=== PATIENT | male | born 1975 | race Hispanic/Latino ===

== ENCOUNTER 2016-11-30 08:12 | Emergency (ER) | payer BC ==
[2016-11-30 08:13] VITALS: BMI 38.7
[2016-11-30 08:22] VITALS: BP 140/77; PULSE 70; RESP 18; TEMP 98.4; O2SAT 95
--- NOTE | 2016-11-30 08:52 | ED PDOC ---
HPI: Chest Pain Time Seen by Provider: 11/30/16 08:25 Chief Complaint (Provider): Chest pain History Per: Patient History/Exam Limitations: no limitations Onset/Duration Of Symptoms: Days (Today) Current Symptoms Are (Timing): Still Present Additional Complaint(s): Chest pain like squeezing off and on for today when he woke up. No numbness, tingles, weakness, headaches, dizziness, calf pain, cough, long distance travel. No hormone tx. No back pain. No abd pain. Past Medical History Reviewed: Nursing Documentation, Vital Signs Vital Signs: Last Vital Signs Temp 98.4 F 11/30/16 08:32 Pulse 70 11/30/16 08:36 Resp 18 11/30/16 08:32 BP 140/77 11/30/16 08:32 Pulse Ox 95 11/30/16 08:53 - Medical History PMH: No Chronic Diseases Denies: Chronic Kidney Disease - Surgical History Surgical History: No Surg Hx - Family History Family History: States: Unknown Family Hx - Social History Current smoker - smoking cessation education provided: No Alcohol: None Drugs: Denies - Home Medications Home Medications: Ambulatory Orders Medication Instructions Recorded Acetaminophen/Oxycodone Hydr 1 tab PO Q6H PRN #12 tab 09/10/13 [Percocet 10/325 mg Tab] Ibuprofen 1 tab PO TID PRN #15 tab 09/10/13 Diazepam [Valium] 2 mg PO BID PRN #10 tab 03/19/14 Famotidine [Pepcid] 40 mg PO DAILY PRN #30 tab 03/19/14 Ibuprofen [Motrin] 600 mg PO TID PRN #30 tab 03/19/14 Amoxicillin/Clavulanate [Augmentin 1 tab PO BID #20 tab 04/12/14 875 MG-125 MG] Naproxen [Naprosyn] 500 mg PO Q12 PRN #30 tab 05/05/14 Acetaminophen/Hydrocodone Bi 1 tab PO QID PRN #12 tab 10/05/14 [Vicodin 300 mg-5 mg] Ondansetron [Zofran Odt] 4 mg PO TID PRN #15 odt 10/05/14 Tamsulosin HCl [Flomax] 0.4 mg PO DAILY #14 cap 10/05/14 Promethazine DM [Phenergan DM 10 ml PO Q8 PRN #1 cup 11/28/15 Syrup] Albuterol Sulfate [Proair Hfa] 0.09 mg IH Q6H PRN #2 inh 04/14/16 Azithromycin [Zithromax] 250 mg PO DAILY 5 Days 04/14/16 Benzonatate [Tessalon Perles] 100 mg PO BID PRN 5 Days 04/14/16 Ibuprofen [Motrin] 600 mg PO TID 7 Days 04/14/16 - Allergies Allergies/Adverse Reactions: Allergies Allergy/AdvReac Type Severity Reaction Status Date / Time No Known Allergies Allergy Verified 11/30/16 08:32 Review of Systems ROS Statement: Except As Marked, All Systems Reviewed And Found Negative Cardiovascular: Positive for: Chest Pain Physical Exam - Reviewed Nursing Documentation Reviewed: Yes Vital Signs Reviewed: Yes - Physical Exam Appears: Positive for: Well, Non-toxic, No Acute Distress Head Exam: Positive for: ATRAUMATIC, NORMAL INSPECTION, NORMOCEPHALIC Skin: Positive for: Normal Color, Warm, DRY Eye Exam: Positive for: EOMI, Normal appearance, PERRL ENT: Positive for: Normal ENT Inspection Neck: Positive for: Normal, Painless ROM Cardiovascular/Chest: Positive for: Regular Rate, Rhythm, Chest Non Tender. Negative for: Edema Respiratory: Positive for: CNT, Normal Breath Sounds Gastrointestinal/Abdominal: Positive for: Normal Exam, Bowel Sounds, Soft. Negative for: Tenderness Back: Positive for: Normal Inspection. Negative for: L CVA Tenderness, R CVA Tenderness Extremity: Positive for: Normal ROM. Negative for: Tenderness, Pedal Edema Neurologic/Psych: Positive for: Alert, Oriented - Laboratory Results Result Diagrams: 11/30/16 10:15 11/30/16 10:15 Interpretation Of Abn Labs: no acute - ECG ECG: Positive for: Interpreted By Me, Viewed By Me ECG Rhythm: Positive for: Normal QRS, Normal ST Segment, Sinus Rhythm O2 Sat by Pulse Oximetry: 95 Pulse Ox Interpretation: Normal - Radiology X-Ray: Read By Radiologist X-Ray Interpretation: No Acute Disease - Progress ED Course And Treament: 1101: Stable. Pain free. Does not want to stay in the hospital. 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 AAOx3. Has capacity to make decisions. Disposition - Clinical Impression Clinical Impression: Acute chest pain - Patient ED Disposition Is Patient to be Admitted: No Counseled Patient/Family Regarding: Studies Performed, Diagnosis, Need For Followup - Disposition Referrals: Obed Arceo DO [Family Provider] - 11/30/16 Disposition: Routine/Home Disposition Time: 11:10 Condition: STABLE Additional Instructions: Return right away for further evaluation and admission. You wish not to be admitted today. At the least, see your doctor for further evaluation and treatment. Instructions: Chest Pain (ED) Forms: [facility] (Hungarian)
[2016-11-30] MEDS ORDERED: Sodium Chloride 0.9% 500 ML IV STA (10:03)
[2016-11-30 10:19] LABS: BASO % 0.6 % (0.0-2.0); EOS # 0.2 K/uL (0.0-0.7); EOS % 2.3 % (0.0-4.0); HEMATOCRIT 38.8 % (35.0-51.0); LYMPH # 1.3 K/uL (1.0-4.3); LYMPH % 17.2 % (20.0-40.0); MEAN CELL VOLUME 80.9 fl (80.0-94.0); MEAN CORPUSCULAR HEMOGLOBIN 26.8 pg (27.0-31.0); MEAN CORPUSCULAR HGB CONC 33.2 g/dL (33.0-37.0); MONO # 0.7 K/uL (0.0-0.8); NEUT # 5.3 K/uL (1.8-7.0); NEUT % 70.9 % (50.0-75.0); NRBC % 0.1 % (0.0-0.0); RED CELL DISTRIBUTION WIDTH 13.8 % (11.5-14.5); WHITE BLOOD COUNT 7.5 K/uL (4.8-10.8)
--- NOTE | 2016-11-30 10:25 | RAD ---
HISTORY: chest pain COMPARISON: 04/14/2016. FINDINGS: LUNGS: There may be some minimal left basilar atelectasis. PLEURA: No significant pleural effusion identified, no pneumothorax apparent. CARDIOVASCULAR: Normal. OSSEOUS STRUCTURES: Mild multilevel degenerative spondylosis of the thoracic spine VISUALIZED UPPER ABDOMEN: Normal. OTHER FINDINGS: None. IMPRESSION: Suspect minimal left basilar atelectasis
[2016-11-30 10:30] LABS: ALB/GLOB RATIO 0.9 (1.0-2.1); ALKALINE PHOSPHATASE 106 U/L (38-126); ALT/SGPT 33 U/L (21-72); AST/SGOT 25 U/L (17-59); BILIRUBIN,TOTAL 0.7 mg/dl (0.2-1.3); BLOOD UREA NITROGEN 10 mg/dl (9-20); CALCIUM 8.5 mg/dL (8.4-10.2); CARBON DIOXIDE 25 mmol/L (22-30); CHLORIDE 107 mmol/L (98-107); GFR AFRICAN-AMERICAN > 60; GLUCOSE,RANDOM 113 mg/dL (75-110); POTASSIUM 4.2 MMOL/L (3.6-5.0); SODIUM 142 mmol/l (132-148); TOTAL PROTEIN 7.5 G/DL (6.3-8.2)
--- NOTE | 2016-12-01 09:20 | CARD ---
APPROVED REPORT EKG Measurement Heart [id number] MD [id number] <Conclusion> Normal sinus rhythm Rightward axis Borderline ECG
== END 2016-11-30 11:28 | disposition home or self-care (01) ==
LOC: H.ER 08:12
DX: R07.9 Chest pain, unspecified (principal)
CPT/HCPCS: 71010; 80053; 84484; 85025; 93005; 99283; J7040

== ENCOUNTER 2016-12-28 18:11 | Emergency (ER) | payer BC ==
[2016-12-28 18:11] VITALS: BMI 38.7
--- NOTE | 2016-12-28 19:34 | ED PDOC ---
HPI: CCC, URI, Sore Throat Time Seen by Provider: 12/28/16 19:25 Chief Complaint (Nursing): Shortness Of Breath Chief Complaint (Provider): cough History Per: Patient History/Exam Limitations: no limitations Onset/Duration Of Symptoms: Days (5) Associated Symptoms: Cough. denies: Fever, Chills, Sore Throat, Sputum, Myalgias, Vomiting, Diarrhea Past Medical History Reviewed: Historical Data, Nursing Documentation, Vital Signs Vital Signs: Last Vital Signs Temp 98.2 F 12/28/16 19:36 Pulse 81 12/28/16 19:36 Resp 18 12/28/16 19:37 BP 115/63 12/28/16 19:36 Pulse Ox 99 12/28/16 19:36 - Medical History PMH: Gastritis Denies: Asthma, Chronic Kidney Disease - Family History Family History: States: Unknown Family Hx - Social History Current smoker - smoking cessation education provided: No - Home Medications Home Medications: Ambulatory Orders Medication Instructions Recorded Acetaminophen/Oxycodone Hydr 1 tab PO Q6H PRN #12 tab 09/10/13 [Percocet 10/325 mg Tab] Ibuprofen 1 tab PO TID PRN #15 tab 09/10/13 Diazepam [Valium] 2 mg PO BID PRN #10 tab 03/19/14 Famotidine [Pepcid] 40 mg PO DAILY PRN #30 tab 03/19/14 Ibuprofen [Motrin] 600 mg PO TID PRN #30 tab 03/19/14 Amoxicillin/Clavulanate [Augmentin 1 tab PO BID #20 tab 04/12/14 875 MG-125 MG] Naproxen [Naprosyn] 500 mg PO Q12 PRN #30 tab 05/05/14 Acetaminophen/Hydrocodone Bi 1 tab PO QID PRN #12 tab 10/05/14 [Vicodin 300 mg-5 mg] Ondansetron [Zofran Odt] 4 mg PO TID PRN #15 odt 10/05/14 Tamsulosin HCl [Flomax] 0.4 mg PO DAILY #14 cap 10/05/14 Promethazine DM [Phenergan DM 10 ml PO Q8 PRN #1 cup 06/25/15 Syrup] Albuterol Sulfate [Proair Hfa] 0.09 mg IH Q6H PRN #2 inh 04/14/16 Azithromycin [Zithromax] 250 mg PO DAILY 5 Days 04/14/16 Benzonatate [Tessalon Perles] 100 mg PO BID PRN 5 Days 04/14/16 Ibuprofen [Motrin] 600 mg PO TID 7 Days 04/14/16 Albuterol HFA [Ventolin HFA 90 2 puff IH Q4H PRN #1 inh 12/28/16 mcg/actuation (8 g)] Azithromycin 1 tab PO DAILY #6 tab 12/28/16 Promethazine DM [Phenergan DM 10 ml PO Q6 PRN #120 ml 12/28/16 Syrup] - Allergies Allergies/Adverse Reactions: Allergies Allergy/AdvReac Type Severity Reaction Status Date / Time No Known Allergies Allergy Verified 11/30/16 08:32 Review of Systems ROS Statement: Except As Marked, All Systems Reviewed And Found Negative (and as per HPI) Constitutional: Negative for: Fever, Chills Cardiovascular: Negative for: Chest Pain, Light Headedness Respiratory: Positive for: Cough. Negative for: Hemoptysis, SOB with Exertion, Wheezing Physical Exam - Reviewed Nursing Documentation Reviewed: Yes Vital Signs Reviewed: Yes - Physical Exam Appears: Positive for: Well, No Acute Distress Head Exam: Positive for: ATRAUMATIC, NORMOCEPHALIC Skin: Positive for: Warm, Dry Eye Exam: Positive for: EOMI, PERRL Neck: Positive for: Painless ROM, Supple Cardiovascular/Chest: Positive for: Regular Rate, Rhythm, Chest Non Tender. Negative for: Murmur Respiratory: Positive for: Normal Breath Sounds. Negative for: Accessory Muscle Use, Rales, Rhonchi, Wheezing Gastrointestinal/Abdominal: Positive for: Bowel Sounds, Soft. Negative for: Tenderness Extremity: Positive for: Normal ROM. Negative for: Pedal Edema Lymphatic: Negative for: Adenopathy Neurologic/Psych: Positive for: Alert. Negative for: Motor/Sensory Deficits Disposition - Clinical Impression Clinical Impression: Bronchitis - Disposition Referrals: Obed Arceo DO [Family Provider] - Disposition: Routine/Home Disposition Time: 19:31 Condition: STABLE Prescriptions: Albuterol HFA [Ventolin HFA 90 mcg/actuation (8 g)] 2 puff IH Q4H PRN #1 inh PRN Reason: chest tightness Azithromycin 1 tab PO DAILY #6 tab Promethazine DM [Phenergan DM Syrup] 10 ml PO Q6 PRN #120 ml PRN Reason: severe cough Instructions: Acute Bronchitis (ED) Forms: [facility] ED School/Work Excuse
[2016-12-28 19:38] VITALS: BP 115/63; PULSE 81; RESP 18; TEMP 98.2; O2SAT 99
== END 2016-12-28 19:46 | disposition home or self-care (01) ==
LOC: H.ER 18:11
DX: J20.9 Acute bronchitis, unspecified (principal)

== ENCOUNTER 2017-06-16 22:48 | Emergency (ER) | payer BC ==
[2017-06-16 22:49] VITALS: BMI 38.7
[2017-06-16 22:58] VITALS: BP 153/46; PULSE 74; RESP 18; TEMP 98.1; O2SAT 99
--- NOTE | 2017-06-16 23:37 | ED PDOC ---
HPI: Back Time Seen by Provider: 06/16/17 23:01 Chief Complaint (Nursing): Back Pain Chief Complaint (Provider): Back Pain History Per: Patient History/Exam Limitations: no limitations Onset/Duration Of Symptoms: Days (x1) Current Symptoms Are (Timing): Still Present Associated Symptoms: None Additional Complaint(s): 41 year old male presents to ED with complaints of right-sided lower back pain since yesterday and has no past medical history. Patient notes that he slipped on a wet floor yesterday, but caught himself before he fell. 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 PCP: Obed Arceo - Risk Factors AAA Risk Factors: Neg: Older Than 49 Years Of Age Past Medical History Reviewed: Historical Data, Nursing Documentation, Vital Signs Vital Signs: Last Vital Signs Temp 98.1 F 06/16/17 22:54 Pulse 74 06/16/17 22:54 Resp 18 06/16/17 22:54 BP 153/46 H 06/16/17 22:54 Pulse Ox 99 06/16/17 22:54 - Medical History PMH: No Chronic Diseases, Gastritis Denies: Asthma, Chronic Kidney Disease - Surgical History Surgical History: No Surg Hx - Family History Family History: States: Unknown Family Hx - Social History Drugs: Denies - Home Medications Home Medications: Ambulatory Orders Medication Instructions Recorded Acetaminophen/Oxycodone Hydr 1 tab PO Q6H PRN #12 tab 09/10/13 [Percocet 10/325 mg Tab] Ibuprofen 1 tab PO TID PRN #15 tab 09/10/13 Diazepam [Valium] 2 mg PO BID PRN #10 tab 03/19/14 Famotidine [Pepcid] 40 mg PO DAILY PRN #30 tab 03/19/14 Ibuprofen [Motrin] 600 mg PO TID PRN #30 tab 03/19/14 Amoxicillin/Clavulanate [Augmentin 1 tab PO BID #20 tab 04/12/14 875 MG-125 MG] Naproxen [Naprosyn] 500 mg PO Q12 PRN #30 tab 05/05/14 Acetaminophen/Hydrocodone Bi 1 tab PO QID PRN #12 tab 10/05/14 [Vicodin 300 mg-5 mg] Ondansetron [Zofran Odt] 4 mg PO TID PRN #15 odt 10/05/14 Tamsulosin HCl [Flomax] 0.4 mg PO DAILY #14 cap 10/05/14 Promethazine DM [Phenergan DM 10 ml PO Q8 PRN #1 cup 06/25/15 Syrup] Albuterol Sulfate [Proair Hfa] 0.09 mg IH Q6H PRN #2 inh 04/14/16 Azithromycin [Zithromax] 250 mg PO DAILY 5 Days tab 04/14/16 Benzonatate [Tessalon Perles] 100 mg PO BID PRN 5 Days sgl 04/14/16 Ibuprofen [Motrin] 600 mg PO TID 7 Days tab 04/14/16 Albuterol HFA [Ventolin HFA 90 2 puff IH Q4H PRN #1 inh 12/28/16 mcg/actuation (8 g)] Azithromycin 1 tab PO DAILY #6 tab 12/28/16 Promethazine DM [Phenergan DM 10 ml PO Q6 PRN #120 ml 12/28/16 Syrup] Cyclobenzaprine [Cyclobenzaprine 10 mg PO BID #15 tab 06/16/17 HCl] Ibuprofen [Motrin Tab] 600 mg PO Q6 #30 tab 06/16/17 - Allergies Allergies/Adverse Reactions: Allergies Allergy/AdvReac Type Severity Reaction Status Date / Time No Known Allergies Allergy Verified 06/16/17 22:54 Review of Systems ROS Statement: Except As Marked, All Systems Reviewed And Found Negative Musculoskeletal: Positive for: Back Pain (right-sided lower back pain) Physical Exam - Reviewed Nursing Documentation Reviewed: Yes Vital Signs Reviewed: Yes - Physical Exam Appears: Positive for: Non-toxic, No Acute Distress Head Exam: Positive for: ATRAUMATIC, NORMOCEPHALIC Skin: Positive for: Normal Color, Warm, Dry Neck: Positive for: Normal Respiratory: Positive for: Normal Breath Sounds. Negative for: Respiratory Distress Back: Positive for: Other (right lumbar paravertebral muscular tenderness). Negative for: L CVA Tenderness, R CVA Tenderness Extremity: Positive for: Normal ROM. Negative for: Deformity Neurologic/Psych: Positive for: Alert, Oriented. Negative for: Motor/Sensory Deficits - ECG O2 Sat by Pulse Oximetry: 99 (RA) Pulse Ox Interpretation: Normal Medical Decision Making Medical Decision Makin Initial impression: muscular strain Initial plan: * Flexeril 10mg PO * Ibuprofen 600mg PO * Re-evaluation 0000 Pt. feeling much better. Safe for discharge. Return precautions discussed. Scribe Attestation: Documented by Alicja Sanders acting as a scribe for Alex Barrett MD. Scribe Attestation: All medical record entries made by the Scribe were at my direction and personally dictated by me. I have reviewed the chart and agree that the record accurately reflects my personal performance of the history, physical exam, medical decision making, and the department course for this patient. I have also personally directed, reviewed, and agree with the discharge instructions and disposition. Disposition - Clinical Impression Clinical Impression: Back strain - Disposition Referrals: Obed Arceo DO [Primary Care Provider] - Disposition: Routine/Home Disposition Time: 00:00 Condition: IMPROVED Prescriptions: Cyclobenzaprine [Cyclobenzaprine HCl] 10 mg PO BID #15 tab Ibuprofen [Motrin Tab] 600 mg PO Q6 #30 tab Instructions: Muscle Strain (ED) Forms: [facility] (Beninese)
== END 2017-06-17 00:02 | disposition home or self-care (01) ==
LOC: H.ER 22:48
DX: S39.012A Strain of muscle, fascia and tendon of lower back, initial encounter (principal); X50.1XXA Overexertion from prolonged static or awkward postures, initial encounter; Y92.89 Other specified places as the place of occurrence of the external cause

== ENCOUNTER 2017-12-02 15:31 | Emergency (ER) | payer BC ==
[2017-12-02 15:31] VITALS: BMI 38.7
[2017-12-02 15:44] VITALS: BP 136/80; PULSE 80; RESP 16; TEMP 98.1; O2SAT 100
--- NOTE | 2017-12-02 16:28 | ED PDOC ---
HPI: Chest Pain Time Seen by Provider: 12/02/17 16:18 Chief Complaint (Nursing): Chest Pain Chief Complaint (Provider): Chest pain History Per: Patient History/Exam Limitations: no limitations Onset/Duration Of Symptoms: Hrs (this morning) Current Symptoms Are (Timing): Still Present Quality: Pressure Associated Symptoms: Other (dizziness) Additional Complaint(s): Jefferson Ragsdale is a 42 year old male, with no significant past medical history, who presents to the emergency department complaining of chest pressure associated with dizziness onset since this morning. Patient states the pain does not radiate. He denies any fever, chills, shortness of breath or palpitations. No further medical complaints. PMD: Obed Arceo Past Medical History Reviewed: Historical Data, Nursing Documentation, Vital Signs Vital Signs: Last Vital Signs Temp 98.1 F 12/02/17 15:42 Pulse 80 12/02/17 15:42 Resp 16 12/02/17 15:42 BP 136/80 12/02/17 15:42 Pulse Ox 100 12/02/17 17:02 - Medical History PMH: Gastritis Denies: Asthma, Chronic Kidney Disease - Surgical History Surgical History: No Surg Hx - Family History Family History: States: Unknown Family Hx - Home Medications Home Medications: Ambulatory Orders Medication Instructions Recorded Acetaminophen/Oxycodone Hydr 1 tab PO Q6H PRN #12 tab 09/10/13 [Percocet 10/325 mg Tab] Ibuprofen 1 tab PO TID PRN #15 tab 09/10/13 Diazepam [Valium] 2 mg PO BID PRN #10 tab 03/19/14 Famotidine [Pepcid] 40 mg PO DAILY PRN #30 tab 03/19/14 Ibuprofen [Motrin] 600 mg PO TID PRN #30 tab 03/19/14 Amoxicillin/Clavulanate [Augmentin 1 tab PO BID #20 tab 04/12/14 875 MG-125 MG] Naproxen [Naprosyn] 500 mg PO Q12 PRN #30 tab 05/05/14 Acetaminophen/Hydrocodone Bi 1 tab PO QID PRN #12 tab 10/05/14 [Vicodin 300 mg-5 mg] Ondansetron [Zofran Odt] 4 mg PO TID PRN #15 odt 10/05/14 Tamsulosin HCl [Flomax] 0.4 mg PO DAILY #14 cap 10/05/14 Promethazine DM [Phenergan DM 10 ml PO Q8 PRN #1 cup 06/25/15 Syrup] Albuterol Sulfate [Proair Hfa] 0.09 mg IH Q6H PRN #2 inh 04/14/16 Azithromycin [Zithromax] 250 mg PO DAILY 5 Days tab 04/14/16 Benzonatate [Tessalon Perles] 100 mg PO BID PRN 5 Days sgl 04/14/16 Ibuprofen [Motrin] 600 mg PO TID 7 Days tab 04/14/16 Albuterol HFA [Ventolin HFA 90 2 puff IH Q4H PRN #1 inh 12/28/16 mcg/actuation (8 g)] Azithromycin 1 tab PO DAILY #6 tab 12/28/16 Promethazine DM [Phenergan DM 10 ml PO Q6 PRN #120 ml 12/28/16 Syrup] Cyclobenzaprine [Cyclobenzaprine 10 mg PO BID #15 tab 06/16/17 HCl] Ibuprofen [Motrin Tab] 600 mg PO Q6 #30 tab 06/16/17 Non-Formulary 1 ea .ROUTE Q6 #1 ea 12/02/17 - Allergies Allergies/Adverse Reactions: Allergies Allergy/AdvReac Type Severity Reaction Status Date / Time No Known Allergies Allergy Verified 12/02/17 15:41 Review of Systems ROS Statement: Except As Marked, All Systems Reviewed And Found Negative Constitutional: Negative for: Fever, Chills Cardiovascular: Positive for: Chest Pain (pressure). Negative for: Palpitations Respiratory: Negative for: Shortness of Breath Neurological: Positive for: Dizziness Physical Exam - Reviewed Nursing Documentation Reviewed: Yes Vital Signs Reviewed: Yes - Physical Exam Appears: Positive for: Non-toxic Head Exam: Positive for: ATRAUMATIC, NORMOCEPHALIC Skin: Positive for: Normal Color, Warm, Dry. Negative for: Rash Eye Exam: Positive for: Normal appearance Neck: Positive for: Painless ROM Cardiovascular/Chest: Positive for: Regular Rate, Rhythm. Negative for: Murmur Respiratory: Positive for: Normal Breath Sounds. Negative for: Respiratory Distress Gastrointestinal/Abdominal: Positive for: Normal Exam, Soft. Negative for: Tenderness Extremity: Positive for: Normal ROM (upper and lower extremities). Negative for : Deformity, Swelling Neurologic/Psych: Positive for: Alert, Oriented (x3). Negative for: Motor/ Sensory Deficits (no focal deficits) - Laboratory Results Result Diagrams: 12/02/17 16:40 12/02/17 16:40 - ECG O2 Sat by Pulse Oximetry: 100 (RA) Pulse Ox Interpretation: Normal Medical Decision Making Medical Decision Making: Initial Plan: --EKG --CMP --Troponin I --CBC w/ differential --Chest two views (PA/LAT) [RAD] --Reevaluation Scribe Attestation: Documented by Eric Vera, acting as a scribe for Fletcher Chowdhury MD Provider Scribe Attestation: All medical record entries made by the Scribe were at my direction and personally dictated by me. I have reviewed the chart and agree that the record accurately reflects my personal performance of the history, physical exam, medical decision making, and the department course for this patient. I have also personally directed, reviewed, and agree with the discharge instructions and disposition. Disposition - Clinical Impression Clinical Impression: Chest pain - Patient ED Disposition Is Patient to be Admitted: No Counseled Patient/Family Regarding: Studies Performed, Diagnosis, Need For Followup, Rx Given - Disposition Referrals: [facility] [Outside] Disposition: Routine/Home Disposition Time: 17:11 Condition: FAIR Prescriptions: Non-Formulary 1 ea .ROUTE Q6 #1 ea Instructions: Chest Pain Forms: [facility] (Faroese)
[2017-12-02 16:49] LABS: BASO # 0.1 K/uL (0.0-0.2); BASO % 0.7 % (0.0-2.0); EOS # 0.3 K/uL (0.0-0.7); EOS % 2.6 % (0.0-4.0); HEMOGLOBIN 12.5 g/dL (12.0-18.0); LYMPH # 1.6 K/uL (1.0-4.3); LYMPH % 13.9 % (20.0-40.0); MEAN CELL VOLUME 81.1 fl (80.0-94.0); MEAN CORPUSCULAR HEMOGLOBIN 26.6 pg (27.0-31.0); MEAN CORPUSCULAR HGB CONC 32.8 g/dL (33.0-37.0); MEAN PLATELET VOLUME 10.1 fl (7.2-11.7); MONO # 1.2 K/uL (0.0-0.8); NEUT # 8.6 K/uL (1.8-7.0); NEUT % 72.8 % (50.0-75.0); NRBC % 0.1 % (0.0-0.0); RBC 4.68 Mil/uL (4.40-5.90); RED CELL DISTRIBUTION WIDTH 13.9 % (11.5-14.5); WHITE BLOOD COUNT 11.8 K/uL (4.8-10.8)
[2017-12-02 17:01] LABS: ALBUMIN 3.8 g/dL (3.5-5.0); ALT/SGPT 41 U/L (21-72); AST/SGOT 29 U/L (17-59); BLOOD UREA NITROGEN 13 mg/dl (9-20); CALCIUM 8.5 mg/dL (8.4-10.2); GFR AFRICAN-AMERICAN > 60; GFR NON-AFRICAN AMERICAN > 60
--- NOTE | 2017-12-02 17:08 | RAD ---
HISTORY: Chest pain COMPARISON: Chest radiographs 10/03/2017. TECHNIQUE: Chest PA and lateral FINDINGS: LUNGS: No active pulmonary disease. PLEURA: No significant pleural effusion identified. No pneumothorax apparent. CARDIOVASCULAR: Normal. OSSEOUS STRUCTURES: No significant abnormalities. VISUALIZED UPPER ABDOMEN: Normal. OTHER FINDINGS: None. IMPRESSION: No interval acute cardiopulmonary disease appreciated.
== END 2017-12-02 17:30 | disposition home or self-care (01) ==
LOC: H.ER 15:31
DX: R07.89 Other chest pain (principal); R42 Dizziness and giddiness

== ENCOUNTER 2018-09-10 10:12 | Emergency (ER) | payer BC ==
[2018-09-10 10:23] VITALS: BMI 41.9
[2018-09-10 10:25] VITALS: TEMP 98.3
[2018-09-10 10:45] VITALS: RESP 18
[2018-09-10] MEDS ORDERED: Albuterol 0.083% Inhal Sol (2.5 mg/3 mL) UD INH ONE (11:52)
[2018-09-10] MEDS ORDERED: Albuterol 0.083% Inhal Sol (2.5 mg/3 mL) UD ONE (12:01)
--- NOTE | 2018-09-10 12:13 | ED PDOC ---
History of Present Illness History of Present Illness: 42 year old male with no significant past medical history who is presenting to the ED for evaluation of congestion and cough associated with chest pain secondary to cough onset last night. According to , patient had a fever last night but no vomiting or diarrhea. Patient offers no other medical complaints at this time. PMD: Obed Arceo HPI: Influenza Time Seen by Provider: 09/10/18 10:45 Chief Complaint: Shortness Of Breath Chief Complaint (Provider): Cough, Cold History Per: Patient Exam Limitations: no limitations Onset/Duration Of Symptoms: Days (x1) Symptoms include: fever. denies: vomiting, diarrhea Past Medical History Reviewed: Historical Data, Nursing Documentation, Vital Signs Vital Signs: Last Vital Signs Temp 98.3 F 09/10/18 10:24 Pulse 72 09/10/18 10:43 Resp 18 09/10/18 10:43 BP 130/70 09/10/18 10:24 Pulse Ox 99 09/10/18 10:43 - Medical History PMH: Gastritis Denies: Asthma, Chronic Kidney Disease - Surgical History Surgical History: No Surg Hx - Family History Family History: States: Unknown Family Hx - Social History Current smoker - smoking cessation education provided: No Alcohol: Social Drugs: Denies - Home Medications Home Medications: Ambulatory Orders Medication Instructions Recorded Acetaminophen/Oxycodone Hydr 1 tab PO Q6H PRN #12 tab 09/10/13 [Percocet 10/325 mg Tab] RX: Ibuprofen 1 tab PO TID PRN #15 tab 09/10/13 Diazepam [Valium] 2 mg PO BID PRN #10 tab 03/19/14 Famotidine [Pepcid] 40 mg PO DAILY PRN #30 tab 03/19/14 Ibuprofen [Motrin] 600 mg PO TID PRN #30 tab 03/19/14 Amoxicillin/Clavulanate [Augmentin 1 tab PO BID #20 tab 04/12/14 875 MG-125 MG] RX: Naproxen [Naprosyn] 500 mg PO Q12 PRN #30 tab 05/05/14 Acetaminophen/Hydrocodone Bi 1 tab PO QID PRN #12 tab 10/05/14 [Vicodin 300 mg-5 mg] Ondansetron [Zofran Odt] 4 mg PO TID PRN #15 odt 10/05/14 Tamsulosin HCl [Flomax] 0.4 mg PO DAILY #14 cap 10/05/14 Promethazine DM [Phenergan DM 10 ml PO Q8 PRN #1 cup 06/25/15 Syrup] Albuterol Sulfate [Proair Hfa] 0.09 mg IH Q6H PRN #2 inh 04/14/16 Azithromycin [Zithromax] 250 mg PO DAILY 5 Days tab 04/14/16 Benzonatate [Tessalon Perles] 100 mg PO BID PRN 5 Days sgl 04/14/16 Ibuprofen [Motrin] 600 mg PO TID 7 Days tab 04/14/16 Promethazine DM [Phenergan DM 10 ml PO Q6 PRN #120 ml 12/28/16 Syrup] RX: Albuterol HFA [Ventolin HFA 90 2 puff IH Q4H PRN #1 inh 12/28/16 mcg/actuation (8 g)] RX: Azithromycin 1 tab PO DAILY #6 tab 12/28/16 Cyclobenzaprine [Cyclobenzaprine 10 mg PO BID #15 tab 06/16/17 HCl] RX: Ibuprofen [Motrin Tab] 600 mg PO Q6 #30 tab 06/16/17 RX: Non-Formulary 1 ea .ROUTE Q6 #1 ea 12/02/17 Albuterol Sulfate [Proair Hfa] 1 - 2 puff IH Q4H PRN #1 09/10/18 - Allergies Allergies/Adverse Reactions: Allergies Allergy/AdvReac Type Severity Reaction Status Date / Time No Known Allergies Allergy Verified 12/02/17 15:41 Review of Systems ROS Statement: Except As Marked, All Systems Reviewed And Found Negative Constitutional: Positive for: Fever ENT: Positive for: Nose Congestion Cardiovascular: Positive for: Chest Pain Respiratory: Positive for: Cough Gastrointestinal: Negative for: Vomiting, Diarrhea Physical Exam - Reviewed Nursing Documentation Reviewed: Yes Vital Signs Reviewed: Yes - Physical Exam Appears: Positive for: Non-toxic, No Acute Distress Head Exam: Positive for: ATRAUMATIC, NORMAL INSPECTION, NORMOCEPHALIC Skin: Positive for: Normal Color, Warm, DRY Eye Exam: Positive for: EOMI, Normal appearance, PERRL ENT: Positive for: Normal ENT Inspection Neck: Positive for: Normal Cardiovascular/Chest: Positive for: Regular Rate, Rhythm. Negative for: Murmur Respiratory: Positive for: Normal Breath Sounds. Negative for: Respiratory Distress Gastrointestinal/Abdominal: Positive for: Normal Exam Extremity: Positive for: Normal ROM Neurologic/Psych: Positive for: Alert, Oriented. Negative for: Motor/Sensory Deficits Medical Decision Making Medical Decision Making: Time: 11:53 Impression: COUGH rule out flu and pneumonia Plan: --EKG --Chest x-ray --Albuterol 2.5 mg INH --Peak Flow Pre/Post Tx --Influenza A B Chest X-Ray: FINDINGS: LUNGS: No active pulmonary disease. PLEURA: No significant pleural effusion identified. No pneumothorax apparent. CARDIOVASCULAR: No aortic atherosclerotic calcification present. Probable top-normal heart size. No significant appearing pulmonary venous congestion. OSSEOUS STRUCTURES: Thoracic spondylosis. Deformity of lateral right clavicle similar status-remote trauma inferred. VISUALIZED UPPER ABDOMEN: Normal. OTHER FINDINGS: None. IMPRESSION: No active disease. 13:25 Flu is negative. Repeat vitals are normal. pt feels improved /Patient will be discharged home with follow up with PMD. Scribe Attestation: Documented by Kelly Lopes, acting as a scribe for Jimy Willams MD. Provider Scribe Attestation: All medical record entries made by the Scribe were at my direction and personally dictated by me. I have reviewed the chart and agree that the record a ccurately reflects my personal performance of the history, physical exam, medical decision making, and the department course for this patient. I have also personally directed, reviewed, and agree with the discharge instructions and disposition. - ECG ECG Rhythm: Positive for: Normal QRS, Normal ST Segment, Sinus Rhythm Rate: 72 O2 Sat by Pulse Oximetry: 99 (RA) Pulse Ox Interpretation: Normal Disposition - Clinical Impression Clinical Impression: Viral respiratory illness - Patient ED Disposition Is Patient to be Admitted: No Counseled Patient/Family Regarding: Studies Performed, Diagnosis, Need For Followup - Disposition Disposition: Routine/Home Disposition Time: 13:30 Condition: IMPROVED Additional Instructions: follow up with your primary doctor Dr Arceo in 2 days return to the ED with any worsening or concerning symptoms Prescriptions: Albuterol Sulfate [Proair Hfa] 1 - 2 puff IH Q4H PRN #1 PRN Reason: Cough Instructions: Viral Syndrome (DC) Forms: [employer] (Malay)
--- NOTE | 2018-09-10 12:51 | RAD ---
Date of service: 09/10/2018 HISTORY: congestion COMPARISON: No prior. TECHNIQUE: Marked 12/02/2017 FINDINGS: LUNGS: No active pulmonary disease. PLEURA: No significant pleural effusion identified. No pneumothorax apparent. CARDIOVASCULAR: No aortic atherosclerotic calcification present. Probable top-normal heart size. No significant appearing pulmonary venous congestion. OSSEOUS STRUCTURES: Thoracic spondylosis. Deformity of lateral right clavicle similar status-remote trauma inferred. VISUALIZED UPPER ABDOMEN: Normal. OTHER FINDINGS: None. IMPRESSION: No active disease.
[2018-09-10 13:17] VITALS: BP 131/74
[2018-09-10 13:25] VITALS: PULSE 72; O2SAT 99
--- NOTE | 2018-09-10 17:48 | CARD ---
APPROVED REPORT Date of service: 09/10/2018 EKG Measurement Heart [id number] <Conclusion> Normal sinus rhythm Normal ECG
== END 2018-09-10 13:37 | disposition home or self-care (01) ==
LOC: H.ER 10:12
DX: J06.9 Acute upper respiratory infection, unspecified (principal)